=== PATIENT | male | born 1935 | race Asian ===

== ENCOUNTER 2019-12-09 09:54 | Emergency (ER) | payer MEDICARE, BC ==
[~2019-12-09] VITALS: Ht 160 cm; Wt 65.8 kg
--- NOTE | 2019-12-09 10:06 | NUR ---
Dr. Moyer at bedside for MSE
--- NOTE | 2019-12-09 10:22 | NUR ---
Patient discharged to home in stable condition. Written and verbal after care instructions given. Patient verbalizes understanding of instructions. Stressed follow up or return to ER for worsening s/s. Patient ambulated with steady gait. NAD noted
[2019-12-09 10:37] VITALS: BP 142/79
== END 2019-12-09 10:22 | disposition home or self-care (01) ==
LOC: ER 09:54
DX: S61.412A Laceration without foreign body of left hand, initial encounter (principal); W26.0XXA Contact with knife, initial encounter; Y92.89 Other specified places as the place of occurrence of the external cause; Y99.8 Other external cause status; H40.9 Unspecified glaucoma
CPT/HCPCS: 12001; 99282; J3490; A4663

== ENCOUNTER 2019-12-11 10:12 | Emergency (ER) | payer MEDICARE, BC ==
[~2019-12-11] VITALS: Ht 162.6 cm; Wt 65.8 kg
--- NOTE | 2019-12-11 10:18 | NUR ---
PT IS IN ROOM #2A. DR AGUIAR EVALUATED THE PT.
[2019-12-11] MEDS ORDERED: TDAP DIPH,PERTUSS,TET VAC/PF 0.5 ML DISP.SYRIN IM ONE ×2 (10:44→10:45)
[2019-12-11 10:48] VITALS: BP 138/88
== END 2019-12-11 10:50 | disposition home or self-care (01) ==
LOC: ER 10:12
DX: S61.412D Laceration without foreign body of left hand, subsequent encounter (principal); W45.8XXD Other foreign body or object entering through skin, subsequent encounter
CPT/HCPCS: 90715; A4663

== ENCOUNTER 2019-12-23 09:41 | Emergency (ER) | payer MEDICARE, BC ==
[~2019-12-23] VITALS: Ht 160 cm; Wt 68.0 kg
[2019-12-23] MEDS ORDERED: MONT10TA22 PO (09:46)
[2019-12-23] MEDS ORDERED: ATOR10TA33 PO (09:46)
--- NOTE | 2019-12-23 09:58 | NUR ---
Patient discharged to home in stable condition with brisk steady. Written and verbal after care instructions given to patient. Patient verbalized understanding & compliance of instructions. Stressed follow up with PMD or return to ER for worsening s/s.
== END 2019-12-23 09:58 | disposition home or self-care (01) ==
LOC: ER 09:41
DX: S61.012D Laceration without foreign body of left thumb without damage to nail, subsequent encounter (principal); W26.0XXD Contact with knife, subsequent encounter
CPT/HCPCS: A4663